=== PATIENT | male | born 2000 | race Two or more races ===

== ENCOUNTER 2021-07-22 19:34 | Emergency (ER) | payer SELFPAY ==
[~2021-07-22] VITALS: Ht 172.7 cm; Wt 63.5 kg
--- NOTE | 2021-07-22 19:41 | NUR ---
pt a/o bib ra. states he smelled horseraddish and felt dizzy and passed out. pt is calm cooperative moslty Arabic speaking.
[2021-07-22] MEDS ORDERED: levETIRAcetam IV 1,000 MG in IV DEXTROSE 5% 100 ML IV ONE (19:45)
[2021-07-22] MEDS ORDERED: levETIRAcetam 500 MG/5 ML VIAL IV ONE (20:05)
[2021-07-22 20:23] LABS: HEMATOCRIT 46.2 % (36.7-47.1); MEAN CORPUSCULAR HEMOGLOBIN 31.4 uug (23.8-33.4); PLATELET COUNT (AUTO) 269 K/uL (152-348)
[2021-07-22 20:29] LABS: CREATININE 0.9 mg/dL (0.6-1.3); POTASSIUM 3.9 mmol/L (3.5-5.1)
[2021-07-22 20:35] LABS: BILIRUBIN,TOTAL 0.5 mg/dL (0.2-1.0); TOTAL PROTEIN, SERUM 7.7 g/dL (6.4-8.2)
--- NOTE | 2021-07-22 20:45 | NUR ---
IV Keppra ended at 2044.
--- NOTE | 2021-07-22 22:13 | NUR ---
Patient discharged to home in stable condition. Written and verbal after care instructions given. Patient verbalizes understanding of instructions. Stressed follow up or return to ER for worsening s/s. pt ambulated wihtout assist, denies pain.
[2021-07-22 22:14] VITALS: BP 130/60
== END 2021-07-22 22:14 | disposition home or self-care (01) ==
LOC: ER 19:38
DX: R56.9 Unspecified convulsions (principal); S00.03XA Contusion of scalp, initial encounter; W18.30XA Fall on same level, unspecified, initial encounter; Y92.511 Restaurant or cafe as the place of occurrence of the external cause; Y99.0 Civilian activity done for income or pay
CPT/HCPCS: 36415; 70450; 80053; 85025; 85610; 96365; 99284; J1953; J7060; A4663